=== PATIENT | female | born 1965 | race Caucasian/White ===

== ENCOUNTER → 2017-03-15 18:27 | Outpatient (CLI) | payer OTHER ==
[~2017-03-15 18:27] MED LIST: CALCIUM 500 + D1 TAB PO; HYDROCODONE-APA1 TAB PO; MULTIPLE VITAMI1 TA1 PO
== END | disposition home or self-care (01) ==
LOC: D.MAMMO 03-03 13:00
DX: Z12.31 Encounter for screening mammogram for malignant neoplasm of breast (principal)